=== PATIENT | male | born 1970 | race Caucasian/White ===

== ENCOUNTER 2020-03-27 13:48 | Emergency (ER) | payer SELFPAY ==
[~2020-03-27] VITALS: Ht 185.4 cm; Wt 112.5 kg
[2020-03-27 13:53] VITALS: BP_SYST 126
--- NOTE | 2020-03-27 14:49 | NUR ---
Patient to ER bed 04 to gown for evaluation. Side rails up.
--- NOTE | 2020-03-27 14:51 | NUR ---
Patient arrived in the ED c/o foreign object on his right eye after using a blower on March 21. Denied any chest pain or shortness of breath. Denied any fevers, chills, nausea or vomiting. Patient is alert and oriented x4, respirations even and unlabored, speaking in full sentences, and ambulating with a steady gait. VSS, pain level 5/10. Informed of the approximate wait time. Instructed to notify ED staff for any changes in condition or worsening of symptoms while waiting to be seen by an ED provider. Patient verbalized understanding.
--- NOTE | 2020-03-27 15:00 | NUR ---
ER Dr. Crow at bedside examining patient.
--- NOTE | 2020-03-27 15:20 | NUR ---
ER Dr. Crow at bedside re-examining patient.
--- NOTE | 2020-03-27 15:39 | NUR ---
ER discussed with the patient the results and treatment provided. Patient given written and verbal discharge instructions and verbalized understanding. Opportunity for questions provided and answered. Patient in stable condition, last set of vital signs within normal limits, pain scale 0/10, speaking in full sentences and ambulated with a steady gait upon discharge. ID arm band removed. Rx of Maxitriol given. Patient educated on pain management and to follow up with PMD. Medication side effect fact sheet provided.
[2020-03-27 15:40] VITALS: BP_SYST 126
== END 2020-03-27 15:40 | disposition home or self-care (01) ==
LOC: SED 13:48
DX: H00.012 Hordeolum externum right lower eyelid (principal); E11.9 Type 2 diabetes mellitus without complications
CPT/HCPCS: 99283